=== PATIENT | female | born 1960 | race Caucasian/White ===

== ENCOUNTER 2025-05-06 23:05 | Observation (INO) | payer MEDICARE, OTHER, SELFPAY ==
[2025-05-06 17:13] VITALS: BP 139/94
[2025-05-06 17:57] LABS: Hematocrit 33.5 % (37.0-47.0); Hemoglobin 11.7 g/dL (12.0-16.0); Mean Corp Hgb Conc. 34.9 g/dL (33.0-37.0); Mean Corpuscular Volume 87.2 fL (81.0-99.0); Nucleated Red Blood Cells % 0 %; Platelet Count 237 10^3/uL (130-400); Red Cell Dist. Width 12.4 % (11.5-14.5)
[2025-05-06 18:08] LABS: INR 0.97; PT 13.2 Sec (11.4-14.6)
[2025-05-06 18:09] LABS: APTT 29.0 Sec (23.4-35.0)
[2025-05-06 18:22] LABS: ALT (SGPT) 18 U/L (0-35); AST (SGOT) 29 U/L (14-36); Albumin 4.1 g/dl (3.5-5.0); Alkaline Phosphatase 102 U/L (38-126); Blood Urea Nitrogen 41 mg/dl (7-17); Calcium 9.5 mg/dl (8.4-10.2); Carbon Dioxide 28 mmol/L (22-30); Chloride 104 mmol/L (98-107); Glucose 102 mg/dl (70-99); Lithium < 0.2 mmol/L (0.6-1.2); Potassium 3.3 mmol/L (3.5-5.1); Sodium 137 mmol/L (135-145); Total Protein 7.0 g/dl (6.3-8.2); eGFR > 60.00
[2025-05-06 20:25] VITALS: BMI 39.4
[2025-05-06 20:26] VITALS: BP 162/89
[2025-05-06] MEDS: NSS 1000 IV (20:58)
[2025-05-06 21:01] VITALS: BP 144/58
[2025-05-06] MEDS: KCL 260 MEQ IV (21:33)
[2025-05-06 21:41] VITALS: BP 133/59
[2025-05-06 22:00] VITALS: BP 132/60
--- NOTE | 2025-05-06 22:07 | ED.CVA ---
History of Present Illness
General
Chief Complaint: CVA/TIA Symptoms
Source: patient, records and family
Exam Limitations: other (Expressive aphasia)
Time Seen by Provider: 05/06/25 20:06
Nursing documentation reviewed up to this point in time: agreed with
Onset of Stroke Symptoms
Onset of symptoms known: No
Time pt last seen normal is known: No
History of Present Illness
History of Present Illness:
65-year-old female with a past medical history of hypertension and hyperlipidemia, prior stroke with expressive aphasia and right leg weakness chronically, hypothyroidism, bipolar disorder, chronic anemia who presents to the emergency department
with her brother and her sister; she presents from home where she lives independently for evaluation of aphasia and confusion/flights of ideas. The patient is a very limited/difficult historian because she has marked expressive aphasia today and
what ideas are intelligible seems to be jumping around between topics quite frequently and she is quite tangential. Much of the history is obtained from her sister and brother who are at bedside. They report that patient chronically has mild
aphasia which they described as 'a slight slur.' She has chronic weakness in the right leg. She has had issues with bipolar disorder specifically constance in the past requiring hospitalization at [facility] as well as at [facility]. She
previously had been stabilized on Abilify and lithium. It sounds like she has been noncompliant/intermittently compliant with these medications and has had general decline in her psychiatric status. They describe her as 'unable to have a straight
thought.' It sounds like today patient went over to her sister's house and she was not only noted to be tangential and not thinking straight but was also noted to have marked expressive aphasia which is a significant increase from her baseline.
She was brought to the emergency room for evaluation. As best I can understand from the patient it seems that the symptoms may have been developing over the past 2 to 3 days. She does not complain of headache or vision loss, chest pain or
abdominal pain. No reported falls or traumas.
Past History
Past History
ED Past Medical History: CVA and HTN
ED Past Surgical History: None
Social History
Tobacco: Non-smoker
Alcohol: None
Review of Systems
Review of Systems
Unable to obtain full review of systems at this time due to: other (Expressive aphasia)
All Other Systems: Not applicable
Phy Exam
Physical Exam
Physical Exam:
General: Awake, alert
Head: Normocephalic, atraumatic
Eyes: Conjunctiva normal, EOMI, pupils equal round reactive to light bilaterally
Throat: Airway intact, handling secretions
Neck: Trachea midline, supple without meningismus
Lungs: Clear to auscultation bilaterally, no wheezing, rales, rhonchi
Heart: Regular rate and rhythm, no murmurs, gallops, or rubs
Abd: Soft, non distended, nontender
Neuro: Right facial droop noted, marked expressive aphasia, slight weakness right upper extremity compared to left, marked right lower extremity weakness compared to left
Extremities: Warm, well-perfused
Psych: Flight of ideas, no suicidal thoughts expressed, does not appear to be responding to internal stimuli
Scores
Thrombolytic Contraindication
Inclusion and Exclusion criteria reviewed: Yes
Reasons for NON-Tx with Thrombolytics ABSOLUTE Exclusions: Greater than 4.5 hrs from onset of sxs
Heart Failure Risk
Heart Failure Risk Score: Not Applicable
Heart Score for Chest Pain Patients
STEMI patient?: Not applicable
Withdrawal Assessment of Alcohol
Withdrawal Assessment Completed?: Not applicable
Course
Orders/Labs/Results
Orders:
Orders
05/06/25 17:19
CT Head W/o Iv Contrast Urgent
Comment:
Reason For Exam: speech difficulties
05/06/25 17:50
Complete Blood Count/With Diff Urgent
Comprehensive Metabolic Panel Urgent
Free T4 Urgent
Robinson Urgent
PTT Urgent
Prothrombin Time Urgent
TSH Reflex To Free T4 Urgent
05/06/25 19:01
Urinalysis Reflex To Culture Urgent
Date Specimen was Collected: 05/06/25
Time Specimen was Collected: 19:01
05/06/25 20:28
0.9% Sodium Chloride 1000 ml [Nss] 1,000 ml IV BOLUS
Potassium Chloride [KCl] 20 meq 0.9% Sodium Chloride 250 ml [Nss] 250 ml IV NOW
05/06/25 20:58
Potassium Chloride [KCl] 20 meq 0.9% Sodium Chloride 250 ml [Nss] 250 ml IV NOW
05/06/25 22:19
Electrocardiogram (*1) Urgent
Reason for Study: TIA/Stroke
EKG- Treatment ONCE
05/06/25 22:20
Aspirin 325 mg PO NOW STA
Clopidogrel Bisulfate [Plavix] 75 mg PO NOW STA
Abnormal Lab Results
05/06/25
17:50
RBC 3.84 L 10^6/uL
(4.20-5.40)
Hgb 11.7 L g/dL
(12.0-16.0)
Hct 33.5 L %
(37.0-47.0)
Absolute Monos (auto) 0.8 H 10^3/uL
(0.1-0.6)
Monocytes % 10.2 H %
(1.7-9.3)
Potassium 3.3 L mmol/L
(3.5-5.1)
BUN 41 H mg/dl
(7-17)
Glucose 102 H mg/dl
(70-99)
TSH (Reflex) < 0.02 L uIU/ml
(0.47-4.68)
[place] < 0.2 L mmol/L
(0.6-1.2)
05/06/25 17:50
05/06/25 17:50
Vital Signs
Initial and Last Documented VS:
Initial Vital Signs
Temp Pulse Resp BP Pulse Ox
36.6 C 93 18 139/94 98
05/06/25 17:13 05/06/25 17:13 05/06/25 17:13 05/06/25 17:13 05/06/25 17:13
Last Documented Vital Signs
Temp Pulse Resp BP Pulse Ox
36.6 C 79 20 132/60 98
05/06/25 17:13 05/06/25 22:00 05/06/25 22:00 05/06/25 22:00 05/06/25 22:09
MDM/Problems Addressed
Differential Diagnosis Includes:
CVA, recrudescence, brain mass, brain bleed, constance/primary psychiatric illness
MDM/Problems Addressed:
65-year-old female with history as noted presents for evaluation of expressive aphasia and flights of ideas in the setting of noncompliance/intermittent compliance with psychiatric medications. It sounds like her aphasia started within the past 2
or 3 days. Would not be a candidate for tenecteplase in case of stroke. She was sent for labs including CBC and a CMP which showed some mild hypokalemia, elevated BUN suggesting some dehydration. Her lithium level was undetectable suggesting
noncompliance. CT head showed no acute pathology. Certainly this could be recrudescence of her old stroke versus a primary psychiatric issue but given the degree of aphasia on display today I do think she should be admitted for further evaluation
to rule out acute stroke. I do think psychiatric evaluation would be warranted during hospitalization. Case discussed with hospitalist for admission.
Chronic conditions affecting care:
CVA
*Radiology
Radiology exam reviewed: radiology read reviewed
*Pulse Oximetry
SaO2: 98
Oxygen Mode of Delivery: Room air
Patient hypoxic: no (98%)
*Critical Care Note
Total Time (30-74mins, 75-104mins- exclusive of procedures): Not Applicable
Patient Management
Discussion with other providers: Hospitalist (Discussed with hospitalist)
Escalation/DeEscalation of care consider admission/obs:
Admission indicated
ED Attending Note
-
Portions of this chart may have been created with voice recognition software.� Occasional wrong word or��sound alike� substitutions may have occurred due to the inherent limitations of voice recognition software.
Discharge Plan
Departure
Patient Disposition: Admit
Date of Disposition: 05/06/25
Time of Disposition: 22:20
Admit to doctor: Tristen
Presentation/result/management discussed w/ accepting MD/DO: Hospitalist
Discharge Problem:
Expressive aphasia
Prescriptions:
No Action
atorvastatin 80 mg Tablet
80 mg PO HS
levothyroxine 100 mcg Capsule
100 mcg PO DAILY
aspirin 81 mg Tablet,Chewable
81 mg PO DAILY
ferrous sulfate 325 mg (65 mg iron) tablet
325 mg PO DAILY Qty: 30 0RF
Referrals:
Kimberly Gillespie DO [Family Provider, Family Practice]
Interventions
Interventions:
*Risk Screen - Suicide Last Done: 05/06/25 17:13
*General Assessment Last Done: 05/06/25 17:13
*Neglect/Abuse Screening Last Done: 05/06/25 20:27
*ED- Fall Risk Assessment Last Done: 05/06/25 20:27
*ED COVID-19 Vaccine History Last Done: 05/06/25 20:27
ED- Pulmonary Assessment Last Done: 05/06/25 20:27
ED- Neurological Assessment Last Done: 05/06/25 20:27
ED- Cardiac Assessment Last Done: 05/06/25 20:27
ED Swallowing Screen Last Done: 05/06/25 20:34
Discharge Date and Time
Print Language: SAO TOMEAN
--- NOTE | 2025-05-06 22:27 | HPS.HSE ---
Family Physician
-
Family Physician: Kimberly Gillespie
Chief Complaint
-
worsening speech
History of Present Illness
HPI
65F HX Bipolar disorder, partial adherence to psych Meds, prior HX stroke with residual dysarthria and Rt side hemiparesis Alcon > UEx seen at ER :
- Worsening expressive aphasia
- Family reports marked departure form very mild slurring
- NEG initial HCT
Medical History
Past Medical History
Past Medical History: Reports CVA (06/16/22 HCT Probable subacute to chronic infarcts in the left mid-parietal lobe and left basal ganglia.), HTN, Hypercholesterolemia, Hypothyroidism, Psychiatric ( Bipolar disorder) and Other
Past Surgical History: Reports None
Social History
Unable to obtain full social history at this time due to: Other (partial aphasia)
Tobacco: Non-smoker
Alcohol: None
Drug: None
Personal: Single
Living: Alone
Employment: Not Employed
Family History
Family History: Not pertinent
Allergies / Home Medications
Allergies reflects when Allergies were last updated in [employer].
Home Medications with original date entered in [employer]
Allergy/Medication List:
Allergies
Allergy/AdvReac Type Severity Reaction Status Date / Time
adhesive Allergy blisters Verified 07/12/23 21:29
latex [Latex] Allergy BLISTER Verified 07/12/23 21:29
warfarin Allergy low BP Verified 07/12/23 21:29
Home Medications
aspirin 81 mg chewable tablet 81 mg PO DAILY 07/12/23
atorvastatin 80 mg tablet 80 mg PO HS 07/12/23
levothyroxine 100 mcg capsule 100 mcg PO DAILY 07/12/23
lisinopril 40 mg tablet 40 mg PO DAILY 07/12/23
nifedipine 90 mg tablet,extended release 90 mg PO DAILY 07/12/23
Review of Systems
-
Constitutional: Reports No Symptoms
EENT: Reports No Symptoms
Respiratory: Reports No Symptoms
Cardiac: Reports No Symptoms
Abdomen/GI: Reports No Symptoms
: Reports No Symptoms
Musculoskeletal: Reports No Symptoms
Skin: Reports No Symptoms
Neurological: Reports See HPI and Other (Worsening expressive aphasia)
Endocrine: Reports No Symptoms
Hematologic/Lymphatic: Reports No Symptoms
Psych: Reports No Symptoms
Physical Exam
Vital Signs
Vital Signs
Temp Pulse Resp BP Pulse Ox
97.8 F 79 20 132/60 98
05/06/25 17:13 05/06/25 22:00 05/06/25 22:00 05/06/25 22:00 05/06/25 22:09
Physical Exam
General: Well Developed, Well Nourished, No Apparent Distress and Morbidly Obese
HEENT: NormoCephalic, Nose Appears Normal and Ears Appear Normal; No Moist mucous membranes
Respiratory: Clear
Cardiac: S1/S2 and Regular Rhythm
GI: Soft, Non Tender and Non Distended
Musculoskeletal: No Clubbing, No Cyanosis and No Edema
Skin: Warm and Dry; No Rash or Jaundice
Neuro: Awake and Alert
Psych: Calm
Laboratory Results
-
05/06/25 17:50
05/06/25 17:50
Laboratory Results
PT 13.2 Sec (11.4-14.6) 05/06/25 17:50
INR 0.97 05/06/25 17:50
APTT 29.0 Sec (23.4-35.0) 05/06/25 17:50
Total Bilirubin 0.7 mg/dl (0.2-1.3) 05/06/25 17:50
AST 29 U/L (14-36) 05/06/25 17:50
ALT 18 U/L (0-35) 05/06/25 17:50
Alkaline Phosphatase 102 U/L (38-126) 05/06/25 17:50
Data Reviewed
-
CT Scan: Report Reviewed by me
Lab Data: Labs Reviewed by me
Old Records: Reviewed
Impression/Plan
-
Vital Signs
Temp Pulse Resp BP Pulse Ox
97.8 F 79 20 132/60 98
05/06/25 17:13 05/06/25 22:00 05/06/25 22:00 05/06/25 22:00 05/06/25 22:09
Abnormal Lab
05/06/25
17:50
RBC 3.84 L
Hgb 11.7 L
Hct 33.5 L
Absolute Monos (auto) 0.8 H
Monocytes % 10.2 H
Potassium 3.3 L
BUN 41 H
Glucose 102 H
TSH (Reflex) < 0.02 L
[place] < 0.2 L
06/16/22 HCT
Probable subacute to chronic infarcts in the left mid-parietal lobe and left basal ganglia.
Last hospitalist admission: 07/12/23 -07/14/23
DC DXs:
-Vasovagal syncope
- Acute kidney injury
- Hypotension
ASSESSMENT & PLAN
Pending Rx reconciliation
Worsening expressive aphasia with word finding difficulty DDX: recrudescence Lt CVA vs active Psych element
HX residual baseline dysarthria from prior stroke also residual Rt side hemiparesis Alcon> UEx
06/15/22 HX stoke by POS HCT evidence of subacute to chronic infarcts in the L mid-parietal lobe and L basal ganglia.
- family reports marked departure form very mild slurring
- NEG initial HCT
- c/w CLINICAL TRIAL COORDINATOR ASA and Hi intensity Atorvastatin
- Brain MRI in AM - if abnormal consult Neuro
Flights of ideas
HX bipolar disorder
Non adherence to medications ( stopped [place] since July 2023 and stopped Abilify since last 2023 )
Lives with twin brother
- HX 302'd psych inpatient admission to [facility] from February to Jun 2023
- Primary Psychiatric Dr Machado at [facility] - Obtain records
- Psych Consult evaluation
Hypothyroid
- on LT4
- check TSH
HX syncope
DVT Px: SCD
Full code
OBS TLM
[2025-05-06] MEDS: ASPIRIN 325 MG PO (22:59)
[2025-05-06 23:00] VITALS: BP 137/67
[2025-05-06] MEDS: PLAVIX 75 MG PO (23:00)
[2025-05-07] VITALS (20 sets, daily range): BP systolic 121–172; BP diastolic 57–119; PULSE 75; O2SAT 100; BMI 38.4
[2025-05-07 04:12] LABS: Urine Character Clear (Clear)
[2025-05-07 04:38] LABS: HDL Cholesterol 34 mg/dl; LDL Cholesterol, Calculated 26 mg/dl; Very Low Density Lipoprotein 46 mg/dl (0-30)
[2025-05-07] MEDS: SYNTHROID 100 MCG PO (07:30)
[2025-05-07] MEDS: LOW STRENGTH ASPIRIN 81 MG PO (08:30)
[2025-05-07] MEDS: PLAVIX 75 MG PO (08:30)
[2025-05-07 10:05] LABS: Depakane 20.7 ug/ml (50.0-120.0)
--- NOTE | 2025-05-07 11:54 | CM ---
Met with patient and her brother, Mark Castle # [phone] at bedside in ED
Pharmacy verified: [facility] [address] [facility]
HERNANDEZ form explained; signed @ 1000
Brother reported that patient lives alone; multilevel home; small step to enter; powder room 1st floor; 14 steps(railing present) to 2nd floor bath has tub w/shower
PLOF: brother reported has been independent with her personal care; ambulated w/ cane. Patient's sister lives 10 minutes away; shared meal program ?
Transport to be determined
PT/OT MRI pending
Discharge plan to be determined; case management will monitor and support needs/services once identified
--- NOTE | 2025-05-07 12:19 | W.PN.HOSP.TC ---
Today's Communication/Plan
-
Monitor vital signs see plan
MRI pending
Neurology and psychiatry to see
Awaiting final med rec
Continue with current dose of Synthroid
Assessment / Plan
Assessment / Plan
General: Well Developed, Well Nourished, No Apparent Distress and Morbidly Obese
HEENT: NormoCephalic, Nose Appears Normal and Ears Appear Normal
Respiratory: Clear
Cardiac: S1/S2 and Regular Rhythm
GI: Soft, Non Tender and Non Distended
Musculoskeletal: No Edema
Neuro: Awake and Alert
Psych: Calm
Worsening expressive aphasia with word finding difficulty
rule out CVA
HX residual baseline dysarthria from prior stroke also residual Rt side hemiparesis Alcon> UEx
06/15/22 HX stoke by POS HCT evidence of subacute to chronic infarcts in the L mid-parietal lobe and L basal ganglia.
CT on admission suggestive of old infarct, MRI pending
Continue with aspirin, Plavix added, atorvastatin
MRI pending
Neurology consulted
PT
Flights of ideas
HX bipolar disorder
Non adherence to medications ( stopped [place] since July 2023 and stopped Abilify since last 2023 )
Lives with twin brother
- HX 302'd psych inpatient admission to [place] from February to Jun 2023
- Primary Psychiatric Dr Machado at [place] - Obtain records
- Psych Consult evaluation
Not sure what medication she is on, asked pharmacy for med rec.Depakote is currently listed however brother at bedside does not think she takes that
Hypothyroid
- on LT4
Not sure if she is taking, TSH low with elevated free T4. If confirmed that she is taking them we will increase levothyroxine dose
Hypertension
Restart nifedipine
Hypokalemia
replete
HX syncope
DVT Px: SCD
Full code
Anticipated Discharge: 24 - 48 hours
Subjective/Interval History
-
Date of Service: May 07, 2025
denies pain
Objective Data
-
Vital Signs:
Vital Signs
Temp Pulse Resp BP Pulse Ox
97.9 F 74 23 158/86 100
05/07/25 08:33 05/07/25 10:45 05/07/25 10:45 05/07/25 10:00 05/07/25 10:45
[2025-05-07] MEDS: KCL 20 MEQ PO (13:26)
[2025-05-07] MEDS: PROCARDIA XL (EXTENDED RELEASE) 90 MG PO (13:27)
--- NOTE | 2025-05-07 14:10 | PTOTSP ---
Speech Therapy Assessment
Oral-pharyngeal swallow deemed within functional limits with no overt signs of aspiration.
Recommend:
1. Regular solids and thin liquids.
2. Meds as tolerated.
3. ST to follow and complete full language assessment. Obvious expressive and receptive aphasia during this assessment. Follow up ST in next level of care.
--- NOTE | 2025-05-07 14:16 | PTCARENOTE ---
1405 PT received from ED via stretcher AAOX3. Pt oriented to staff, and environment. Pt ambulated from stretcher to bed with her cane. Gait steady.
--- NOTE | 2025-05-07 17:35 | CON.MD ---
Consultation - Medical
-
65 y/o sngle woman with history of CVA, hypothyroidism, elevated cholesterol admitted 05/06/25. She has a long history of psychiatric illness dating from teens with history of psychiatric hospitalizations and ECT at [facility] (
[facility]). Her therapist recently and is awaiting being assigned a new therapist. Does not recall name of her psychiatrist. She also could not produce the name of her medications. Chart reviewed -- she denies she is on lithium as it
produced adverse effects. She does report having had racing thoughts, but timeframe difficult to discern. She now presents with worsening aphasia, specifically mild slurring but rather severe word-finding problems. She has awareness of this
deficit. Reports that she had a stroke on March 27, 2022 and made improvements with speech therapy. Walks with a cane.
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 Lives in a 3-bedroom home, either with or near a sibling.
States her mother and uncles had alcohol problems. Has brother and sister. Brother had provided some information to hospital on this admission, although may not be accurate. She has been prescribed Depakote here as was found in record. No lithium
detected in blood which likely reflects not taking it and says she was not prescribed this recently.
Mental Status: Obese woman, appearing older than chronological age, seated on bed with dinner tray. No tics, tremors or involuntary movements seen. Cane by her bed. Is alert and is oriented to place and time and situation. Mood seems euthymic.
Not manic -- somewhat flat. Denies hallucinations and does not appear to be hallucinating or delusional. Her aphasia severely interferes with giving history. Has insight into her mental illness and medical problems.
Findings from MRI:
1. No MRI evidence for acute infarct or intracranial hemorrhage.
2. Small chronic periventricular white matter infarcts in the posterior left frontal lobe and small chronic infarcts in the posterior limb of the left internal capsule.
3. 9 mm chronic lacunar infarct in the left putamen.
4. 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
5. 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
6. Moderate white matter leukoaraiosis in the right frontal and parietal lobes.
7. Mild to moderate diffuse cerebral and cerebellar volume loss.
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
Diagnosis:
Bipolar Disorder, unspecified
Medication compliance issues
Expressive Aphasia,
Plan: TSH is low at 0.02 and T4 elevated, levothyroixine needs to be reduced, not increased -- will leave to hospitalists.
Will keep Depakote as ordered. Check level in 3 days.
Psychiatry will follow.
--- NOTE | 2025-05-07 18:57 | CON.NEURO ---
Neuro Assessment/Plan
Assessment
MRI brain imgs rev'd, chronic stroke L IC, L midbrain, white matter disease
I spoke to her sister, who checked in on her three weeks ago when she stopped posting on Facebook as usual, and the patient was angry and shut her out. She saw patient with these problems on Thursday, and it seems to be worsening. Says Was the same
presentation as June 2023, except that this time she has some insight into her deficits, and at that time she didn�t. She thinks it�s basically the same thing again and got better with lithium. ?We discussed repeating MRI with contrast, and an
Lp, which she is hesitant for.
would defer further testing unless she fails psychiatric treatment
Consultation
Order
Date of Consultation: 05/07/25
Requesting Provider:
Reason for Consult:
Subjective/Objective
Subjective Data
Date of Service: May 07, 2025
Objective Data
Vital Signs
Temp Pulse Resp BP Pulse Ox
36.4 C 93 21 151/85 99
05/07/25 16:15 05/07/25 16:15 05/07/25 16:15 05/07/25 16:15 05/07/25 16:15
Lab Results
05/06/25 17:50
05/06/25 17:50
PT 13.2 Sec (11.4-14.6) 05/06/25 17:50
INR 0.97 05/06/25 17:50
APTT 29.0 Sec (23.4-35.0) 05/06/25 17:50
Sodium 137 mmol/L (135-145) 05/06/25 17:50
Potassium 3.3 mmol/L (3.5-5.1) L 05/06/25 17:50
BUN 41 mg/dl (7-17) H 05/06/25 17:50
Glucose 102 mg/dl (70-99) H 05/06/25 17:50
Calcium 9.5 mg/dl (8.4-10.2) 05/06/25 17:50
LDL Cholesterol, Calc 26 mg/dl 05/07/25 03:59
Patient Allergies
adhesive Allergy (Verified 05/06/25 17:15)
blisters
latex (Latex) Allergy (Verified 05/06/25 17:15)
BLISTER
warfarin Allergy (Verified 05/06/25 17:15)
low BP
Medications
-
Active Medications
Generic Name Dose Route Start Last Admin
Trade Name Freq PRN Reason Stop Dose Admin
Acetaminophen 650 mg 05/07/25 01:53
Acetaminophen 650 Mg Rectal Suppository RECTAL 06/04/25 01:52
Q4HPRN PRN
RAI, mild pain, or temp >100.4F
Acetaminophen 650 mg 05/07/25 01:53
Acetaminophen 325 Mg Tablet PO 06/04/25 01:52
Q4HPRN PRN
RAI, mild pain, or temp >100.4F
Aspirin 81 mg 05/07/25 08:00 05/07/25 08:30
Aspirin 81 Mg Chewable Tablet PO 06/04/25 07:59 81 mg
DAILY AUGUSTIN Administration
Atorvastatin Calcium 80 mg 05/07/25 22:00
Atorvastatin (Lipitor) 80 Mg Tablet PO 06/04/25 21:59
HS AUGUSTIN
Clopidogrel Bisulfate 75 mg 05/07/25 08:00 05/07/25 08:30
Clopidogrel 75 Mg Tablet PO 06/04/25 07:59 75 mg
DAILY AUGUSTIN Administration
Divalproex Sodium 250 mg 05/08/25 08:00
Divalproex 250 Mg Extended Release (24 Hr) Tablet PO 06/05/25 07:59
DAILY AUGUSTIN
Divalproex Sodium 500 mg 05/07/25 20:00
Divalproex 500 Mg Extended Release (24 Hr) Tablet PO 06/04/25 19:59
BID AUGUSTIN
Levothyroxine Sodium 150 mcg 05/08/25 06:00
Levothyroxine 150 Mcg Tablet PO 06/05/25 05:59
DAILY @ 0600 AUGUSTIN
Nifedipine 90 mg 05/07/25 13:00 05/07/25 13:27
Nifedipine 30 Mg Extended Release Tablet PO 06/04/25 12:59 90 mg
DAILY AUGUSTIN Administration
Sodium Chloride 0 flush 05/07/25 02:00
Sodium Chloride 0.9% (Flush) Syringe IV 06/04/25 01:59
PER PROTOCOL AUGUSTIN
Home Medications
�Medication �Instructions �Recorded
aspirin 81 mg chewable tablet 81 mg PO DAILY Blood Clot 07/12/23
Prevention/Tx
atorvastatin 80 mg tablet 80 mg PO HS High Cholesterol 07/12/23
cholecalciferol (vitamin D3) 50 50 mcg PO BID 05/06/25
mcg (2,000 unit) tablet (Vitamin
D3)
divalproex 250 mg tablet,extended 250 mg PO DAILY 05/06/25
release 24 hr (Depakote ER)
divalproex 500 mg tablet,extended 500 mg PO BID 05/06/25
release 24 hr (Depakote ER)
levothyroxine 150 mcg tablet 150 mcg PO DAILY 05/06/25
melatonin 10 mg tablet 10 mg PO HSPRN PRN insomnia 05/06/25
nifedipine 90 mg tablet,extended 90 mg PO DAILY 05/06/25
release 24 hr
[2025-05-07] MEDS: DEPAKOTE ER (24 HR RELEASE) 500 MG PO (20:24)
[2025-05-07] MEDS: LIPITOR 80 MG PO (21:03)
[2025-05-07] MEDS: TYLENOL 650 MG PO (21:06)
[2025-05-08] VITALS (8 sets, daily range): BP systolic 132–185; BP diastolic 61–114; PULSE 93–107; O2SAT 98
[2025-05-08] MEDS: SYNTHROID 150 MCG PO (05:23)
[2025-05-08 06:37] LABS: Hematocrit 30.8 % (37.0-47.0); Hemoglobin 10.7 g/dL (12.0-16.0); Mean Corp Hgb Conc. 34.7 g/dL (33.0-37.0); Mean Corpuscular Volume 88.0 fL (81.0-99.0); Nucleated Red Blood Cells % 0 %; Platelet Count 226 10^3/uL (130-400); Red Cell Dist. Width 12.6 % (11.5-14.5)
[2025-05-08 07:02] LABS: Blood Urea Nitrogen 18 mg/dl (7-17); Calcium 9.1 mg/dl (8.4-10.2); Carbon Dioxide 25 mmol/L (22-30); Chloride 109 mmol/L (98-107); Estimated Creatinine Clearance 102 ml/min; Glucose 98 mg/dl (70-99); Potassium 4.5 mmol/L (3.5-5.1); Sodium 138 mmol/L (135-145); eGFR > 60.00
--- NOTE | 2025-05-08 08:32 | W.PN.HOSP.TC ---
Addendum entered and electronically signed by Lauren Frey MD 05/08/25 12:26:
per sister, patient remains with expressive aphasia, mildly improved but similar symptoms as to why she was brought in. With negative MRI, no longer concerned about TIA or CVA therefore will stop Plavix
Original Note:
Today's Communication/Plan
-
follow up with Psychiatry
follow up with family, will likely stop Plavix
Assessment / Plan
Assessment / Plan
General: Well Developed, Well Nourished, No Apparent Distress and Morbidly Obese
HEENT: NormoCephalic, Nose Appears Normal and Ears Appear Normal
Respiratory: Clear
Cardiac: S1/S2 and Regular Rhythm
GI: Soft, Non Tender and Non Distended
Musculoskeletal: No Edema
Neuro: Awake and Alert
Psych: Calm
HEAD CT 05/06/25
IMPRESSION:
No acute intracranial abnormalities.
MRI
IMPRESSION:
1. No MRI evidence for acute infarct or intracranial hemorrhage.
2. Small chronic periventricular white matter infarcts in the posterior left frontal lobe and small chronic infarcts in the posterior limb of the left internal capsule.
3. 9 mm chronic lacunar infarct in the left putamen.
4. 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
5. 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
6. Moderate white matter leukoaraiosis in the right frontal and parietal lobes.
7. Mild to moderate diffuse cerebral and cerebellar volume loss.
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
Worsening expressive aphasia with word finding difficulty
HX residual baseline dysarthria from prior stroke also residual Rt side hemiparesis Alcon> UEx
06/15/22 HX stoke by POS HCT evidence of subacute to chronic infarcts in the L mid-parietal lobe and L basal ganglia.
MRI negative for acute stroke
-ua CLEAR
-Continue with aspirin, Lipitor; will touch base with family later and if there has been no improvement in aphasia since admission we can sayt his wasn't a TIA either and would stop Plavix
Neurology consulted
PT
[facility]
HX bipolar disorder
Non adherence to medications ( stopped [place] since July 2023 and stopped Abilify since last year 2023 )
Lives with twin brother
- HX 302'd psych inpatient admission to [facility] from February to Jun 2023
- Primary Psychiatric Dr Machado at [facility] - Obtain records
- Psych Consult evaluation
Not sure what medication she is on, asked pharmacy for med rec.Depakote is currently listed however brother at bedside does not think she takes that
-per Psychiatry, continue Depakote
Hypothyroidism
-low TSH on admission
-lower synthroid dose to 137.5mcg daily
Hypertension
Restart nifedipine
Hypokalemia
replete
HX syncope
DVT Px: SCD
Full code
Anticipated Discharge: 24 - 48 hours
Subjective/Interval History
-
Date of Service: May 08, 2025
patient stating she's frustrating, tangential this morning and teary eyed
Objective Data
-
Labs:
Laboratory Results
05/08/25
06:20
WBC 4.8
Hgb 10.7 L
Hct 30.8 L
Plt Count 226
Sodium 138
Potassium 4.5 D
Chloride 109 H
Carbon Dioxide 25
BUN 18 H
Creatinine 0.5 L
Glucose 98
Calcium 9.1
Vital Signs:
Vital Signs
Temp Pulse Resp BP Pulse Ox
97.3 F 73 20 185/114 97
05/08/25 07:00 05/08/25 07:00 05/08/25 07:00 05/08/25 07:00 05/08/25 07:00
Review of Systems
-
History Source: Patient
All other systems: Reviewed and negative
Data Reviewed
-
Diagnostic Radiology: Report Reviewed by me
Labs: Labs Reviewed by me
[2025-05-08] MEDS: LOW STRENGTH ASPIRIN 81 MG PO (08:47)
[2025-05-08] MEDS: DEPAKOTE ER (24 HR RELEASE) 250 MG PO (08:47)
[2025-05-08] MEDS: DEPAKOTE ER (24 HR RELEASE) 500 MG PO ×2 (08:47→20:35)
[2025-05-08] MEDS: PLAVIX 75 MG PO (08:47)
[2025-05-08] MEDS: PROCARDIA XL (EXTENDED RELEASE) 90 MG PO (08:51)
--- NOTE | 2025-05-08 10:01 | PTOTSP ---
Speech Therapy Evaluation:
Given pt presentation with Aphasia, the Quick Aphasia Battery (QAB) Form 1 was administered. Scores were as follows:
Word Comprehension: 10.00
Sentence Comprehension: 1.67
Word Findin.50
Grammatical Construction: 8.13
Speech Motor Programmin.00
Repetition: 6.25
Readin.00
QAB Overall: 7.20 - moderate
Impression: Pt earned a score of 7.20 on the QAB, indicative of moderate aphasia. Pt's deficits were in receptive and expressive language areas with reductions in sentence comprehension, word finding, grammatical construction, and repetition. In
conversation, mild word finding deficits noted, however speech remained largely fluent, non-sensical, and empty. Pt demonstrated paragrammatism with garbled syntax. She was easily distracted and tangential, requiring frequent redirections for task
participation. Pt noted to be emotionally labile, frequently crying during evaluation followed by periods of calmness. Pt would benefit from ongoing tx at acute care level and following d/c to improve expressive and receptive language skills.
[2025-05-08] MEDS: LIPITOR 80 MG PO (22:40)
[2025-05-08] MEDS: MELATONIN 3 MG PO (22:40)
--- NOTE | 2025-05-09 02:27 | DOWNTIME ---
There was a [employer] Downtime on 05/09/2025 from 0100 to 05/09/2025 at 0220. Downtime documentation of patient's care, including medication administrations, has been reconciled in the electronic record per guidelines. Refer to the
patient's paper chart under the miscellaneous tab to see printed paper medication records and downtime forms.
[2025-05-09 03:00] VITALS: BP 129/71
[2025-05-09] MEDS: TYLENOL 650 MG PO ×3 (04:07→22:23)
[2025-05-09] MEDS: SYNTHROID 137 MCG PO (05:57)
[2025-05-09 07:15] VITALS: BP 133/79
[2025-05-09] MEDS: DEPAKOTE ER (24 HR RELEASE) 500 MG PO (08:01)
[2025-05-09] MEDS: PROCARDIA XL (EXTENDED RELEASE) 90 MG PO (08:01)
[2025-05-09] MEDS: LOW STRENGTH ASPIRIN 81 MG PO (08:01)
[2025-05-09] MEDS: DEPAKOTE ER (24 HR RELEASE) 250 MG PO (08:01)
--- NOTE | 2025-05-09 09:49 | W.PN.HOSP.TC ---
Addendum entered and electronically signed by Lauren Frey MD 05/09/25 18:35:
Patient is an exceptional admissions for further treatment of expressive aphasia and PT/OT
Addendum entered and electronically signed by Lauren Frey MD 05/09/25 09:59:
patient was seen by Neurology who recommended deferring further testing unless she fails psychiatric treatment. patient is more clear today with improved thought process, therefore it seems her symptoms improved with mood stabilizer, Depakote
Original Note:
Today's Communication/Plan
-
dispo planning
follow up further Psychiatry recommendations
Assessment / Plan
Assessment / Plan
HEAD CT 05/06/25
IMPRESSION:
No acute intracranial abnormalities.
MRI
IMPRESSION:
1. No MRI evidence for acute infarct or intracranial hemorrhage.
2. Small chronic periventricular white matter infarcts in the posterior left frontal lobe and small chronic infarcts in the posterior limb of the left internal capsule.
3. 9 mm chronic lacunar infarct in the left putamen.
4. 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
5. 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
6. Moderate white matter leukoaraiosis in the right frontal and parietal lobes.
7. Mild to moderate diffuse cerebral and cerebellar volume loss.
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
Worsening expressive aphasia with word finding difficulty
Hx CVA
-MRI negative for acute stroke; etiology of aphasia related to psychiatric illness in setting of med non-compliance (see below)
-ua CLEAR
-Continue with aspirin, Lipitor; Plavix stopped
[facility]
HX bipolar disorder
Non adherence to medications ( stopped [place] since July 2023 and stopped Abilify since last year 2023 )
Lives with twin brother
- HX 302'd psych inpatient admission to [facility] from February to Jun 2023
- Primary Psychiatric Dr Machado at [place] - Obtain records
- Psych Consult evaluation appreciated
-continue Depakote
-patient's speech seems more clear and calm this morning
-working on placement to SNF
Hypothyroidism
-low TSH on admission
-lower synthroid dose to 137.5mcg daily
Hypertension
Restart nifedipine
Hypokalemia
replete
HX syncope
DVT Px: SCD
Full code
Anticipated Discharge: Within 24 hours
Subjective/Interval History
-
Date of Service: May 09, 2025
speech more clear today
Objective Data
-
Vital Signs:
Vital Signs
Temp Pulse Resp BP Pulse Ox
97.8 F 77 16 133/79 100
05/09/25 07:15 05/09/25 08:01 05/09/25 07:15 05/09/25 08:01 05/09/25 09:13
I&O
05/08/25 05/09/25 05/10/25
06:59 06:59 06:59
Intake Total 1200 / 1200
Balance 1200 / 1200
Review of Systems
-
History Source: Patient
All other systems: Reviewed and negative
Physical Exam
-
General: Well Developed and No Apparent Distress
HEENT: Normocephalic, Atraumatic and Moist Mucous Membranes
Respiratory: Clear to Auscultation
Cardiac: Regular Rhythm and S1/S2; Negative Murmur, Rub or Gallop
GI: Soft, Nontender, Nondistended and Normal Bowel Sounds; Negative Organomegaly
Rectal: Deferred by Provider
Musculoskeletal: No Clubbing, No Cyanosis and No Edema
Skin: Warm; Negative Rash
Neuro: Awake, Alert and Other (speech more clear today. she is less tangential. she is upset about rehab )
Psych: Calm
Data Reviewed
-
Diagnostic Radiology: Report Reviewed by me
[2025-05-09 11:20] VITALS: PULSE 89; O2SAT 97
--- NOTE | 2025-05-09 12:23 | W.PN.UPDATE ---
Update Note
Progress Note Update
Pt seen, sitting up in chair. Pt alert, oriented, answering questions with coherent speech. Pt states she initially could only respond to yes/no questions, now is much better, able to express herself. Pt tearful off and on, states he older
brother just , and she is waiting to hear from her family about his . Pt reports a hx of recurrent major depression, had ECT in the past, took SSRI's, states she was last on Nardil. Pt reports she was placed on [place] more
recently, but had side effects. Pt has been continued on Depakote ER here. VPA level 20.7 on 05/07/25. Pt states she had gastric bypass surgery years ago. Pt is calm, cooperative, speech mildly pressured, thought somewhat circumstantial/mildly
tangential. Pt denies significant depression, apart from sadness due to losses. She does not show signs of active constance or psychosis. Reliability of her history appears to be somewhat questionable.
Imp: Hx of Bipolar d/o, hx of recurrent depression, appears fairly stable on Depakote
Rec: Will switch to Depakote DR given hx of gastric bypass
Outpatient treatment when medically stable/upon return home
Will follow
--- NOTE | 2025-05-09 12:27 | W.DCSUMMARY ---
Addendum entered and electronically signed by Xiang Portillo MD 05/14/25 12:59:
Addendum
Date of admission: 05/06/2025
Date of discharge: 05/12/2025
End
Addendum entered and electronically signed by Lauren Frey MD 05/09/25 16:27:
Depakote changed to DR dior Psychiatry, given history of gastric bypass.
Addendum entered and electronically signed by Lauren Frey MD 05/09/25 12:44:
TSH was checked on admission with value < 0.02. Therefore, patient's Levothyroxine dosing is decreased from 150mcg to 137mcg.
Original Note:
Discharge Summary
Discharge Data
Date of Admission: 05/06/25
Date of Discharge: 05/09/25
-
Pending Results: No
Hospital Course
Discharging Physician : Dr. Lauren Frey
Disposition : SNF
Primary care physician : Dr. Kimberly Gillespie
Principal Discharge diagnosis : Expressive Aphasia, Bipolar Disorder and Medication Non-compliance
Hospital Course :
Ms. Ghazal Chan is a 65 yo woman with hx bipolar disorder, medication non-compliance, CVA with residual dysarthria and right sided hemiparesis brought to the ER with worsening expressive aphasia.
Triage vitals stable. Labs without leukocytosis, normal renal function, K 3.3. Head CT without acute finding. Differential included untreated psychiatric illness versus acute CVA. She was admitted to medicine with Psychiatry and Neurology
consulted. MRI the following morning without acute stroke. Per Neurology recommendation, further testing for aphasia deferred unless fails psychiatric treatment. Patient was continued on her Depakote (at previously prescribed dosing) and she
tolerated this with improvement in symptoms.
Plan is for SNF.
Time spent on discharge was 31 minutes.
Important imaging findings :
HEAD CT 05/06/25
IMPRESSION:
No acute intracranial abnormalities.
MRI
IMPRESSION:
1. No MRI evidence for acute infarct or intracranial hemorrhage.
2. Small chronic periventricular white matter infarcts in the posterior left frontal lobe and small chronic infarcts in the posterior limb of the left internal capsule.
3. 9 mm chronic lacunar infarct in the left putamen.
4. 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
5. 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
6. Moderate white matter leukoaraiosis in the right frontal and parietal lobes.
7. Mild to moderate diffuse cerebral and cerebellar volume loss.
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
Procedure findings :
Discharge Plan
-
Patient Disposition: Care Home/SNF
Discharge Diagnosis/Procedures: expressive aphasia in setting of Bipolar Disorder and medication non-compliance
Diet: Regular
Activity: As tolerated
Driving Restrictions: Not until seen by your Dr
Bathing Restrictions: None
Other Services: PT and OT
Referrals:
Kimberly Gillespie, DO [Family Provider, Family Practice] - in less than 1 week
Prescriptions:
No Action
atorvastatin 80 mg Tablet
80 mg PO HS
aspirin 81 mg Tablet,Chewable
81 mg PO DAILY
nifedipine 90 mg Tablet Extended Release 24hr
90 mg PO DAILY
divalproex [Depakote ER] 500 mg Tablet Extended Release 24 Hr
500 mg PO BID
levothyroxine 150 mcg Tablet
150 mcg PO DAILY
divalproex [Depakote ER] 250 mg Tablet Extended Release 24 Hr
250 mg PO DAILY
Rx Instructions:
once in the morning
cholecalciferol (vitamin D3) [Vitamin D3] 50 mcg (2,000 unit) Tablet
50 mcg PO BID
melatonin 10 mg Tablet
10 mg PO HSPRN PRN (Reason: insomnia)
Discharge Date and Time
Print Language: SRI LANKAN
[2025-05-09 15:01] VITALS: BP 95/57
--- NOTE | 2025-05-09 17:14 | CM ---
Addendum entered by Maria A Melo 05/09/25 17:32:
Pended reference #: [id number]
clinicals faxed to [phone]
Original Note:
Patient seen at bedside
spoke with sister Carmella
PT rec SNF
options reviewed-[facility] accepted [facility], bed available
Spoke with [facility] liaison regarding [facility] & 30 day exceptional admission
tt hospitalist to document in progress note
[facility] NPI #: [id number]
Dr. Donal Delong NPI #: [id number]
CM to initiate [employer] auth via [employer]
PLAN: [facility], once auth approved
[2025-05-09] MEDS: DEPAKOTE (12 HR RELEASE) 500 MG PO (20:08)
[2025-05-09] MEDS: MELATONIN 3 MG PO (22:23)
[2025-05-09] MEDS: LIPITOR 80 MG PO (22:23)
[2025-05-09 23:21] VITALS: BP 123/68
[2025-05-10] MEDS: TYLENOL 650 MG PO ×2 (04:15→14:44)
[2025-05-10] MEDS: SYNTHROID 137 MCG PO (06:02)
[2025-05-10 07:45] VITALS: BP 123/69
[2025-05-10] MEDS: PROCARDIA XL (EXTENDED RELEASE) 90 MG PO (07:53)
[2025-05-10] MEDS: LOW STRENGTH ASPIRIN 81 MG PO (07:53)
[2025-05-10] MEDS: DEPAKOTE (12 HR RELEASE) 250 MG PO (07:53)
[2025-05-10] MEDS: DEPAKOTE (12 HR RELEASE) 500 MG PO ×2 (07:53→20:45)
--- NOTE | 2025-05-10 09:38 | W.PN.HOSP.TC ---
Addendum entered and electronically signed by Xiang Portillo MD 05/10/25 15:41:
Addendum
Patient was evaluated by psychiatrist. Mental status improved significantly. Expectation to be discharged home no longer than 30 days. Patient's currently an exceptional admission.
Original Note:
Today's Communication/Plan
-
dc
Assessment / Plan
Assessment / Plan
Physical Exam
-
General: Well Developed and No Apparent Distress
HEENT: Normocephalic, Atraumatic and Moist Mucous Membranes
Respiratory: Clear to Auscultation
Cardiac: Regular Rhythm and S1/S2; Negative Murmur, Rub or Gallop
GI: Soft, Nontender, Nondistended and Normal Bowel Sounds; Negative Organomegaly
Rectal: Deferred by Provider
Musculoskeletal: No Clubbing, No Cyanosis and No Edema
Skin: Warm; Negative Rash
Neuro: Awake, Alert and oriented X3, followed commands. and Other (gait is normal with walker,
Psych: Calm
HEAD CT 05/06/25
IMPRESSION:
No acute intracranial abnormalities.
MRI
IMPRESSION:
1. No MRI evidence for acute infarct or intracranial hemorrhage.
2. Small chronic periventricular white matter infarcts in the posterior left frontal lobe and small chronic infarcts in the posterior limb of the left internal capsule.
3. 9 mm chronic lacunar infarct in the left putamen.
4. 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
5. 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
6. Moderate white matter leukoaraiosis in the right frontal and parietal lobes.
7. Mild to moderate diffuse cerebral and cerebellar volume loss.
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
Worsening expressive aphasia with word finding difficulty
Hx CVA
-MRI negative for acute stroke; etiology of aphasia related to psychiatric illness in setting of med non-compliance (see below)
-ua CLEAR
-Continue with aspirin, Lipitor; Plavix stopped
[facility]
HX bipolar disorder
Non adherence to medications ( stopped [place] since July 2023 and stopped Abilify since last 2023 )
Lives with twin brother
- HX 302'd psych inpatient admission to [facility] from February to Jun 2023
- Primary Psychiatric Dr Machado at [place] - Obtain records
- Psych Consult evaluation appreciated
-continue Depakote
-patient's speech seems more clear and calm this morning
-working on placement to SNF
Hypothyroidism
-low TSH on admission
-lower synthroid dose to 137.5mcg daily
Hypertension
Restart nifedipine
Hypokalemia
replete
HX syncope
DVT Px: SCD
Full code
Total discharge time spent to see the patient, examine the patient, review lab results and data, discuss discharge plan with patient, nursing staff around 65 minutes
Anticipated Discharge: Today
Subjective/Interval History
-
Date of Service: May 10, 2025
No complaints
Objective Data
-
Vital Signs:
Vital Signs
Temp Pulse Resp BP Pulse Ox
97.4 F 71 16 123/69 99
05/10/25 07:45 05/10/25 07:53 05/10/25 07:45 05/10/25 07:53 05/10/25 07:45
I&O
05/09/25 05/10/25 05/11/25
06:59 06:59 06:59
Intake Total 1200 / 1200 480 / 480
Balance 1200 / 1200 480 / 480
--- NOTE | 2025-05-10 10:15 | CM ---
Auth for [facility] still pending
Pended reference #: [id number]
clinicals were faxed to [phone]
faxed [phone] liaarnaldo Corea the corrected [facility] & progress note for exceptional admissions
PLAN: [facility] once auth approved
Report #: [id number]
Fax #: [phone]
transport forms on chart
[2025-05-10 10:48] VITALS: BP 163/91; PULSE 83; O2SAT 99
--- NOTE | 2025-05-10 11:29 | W.PN.UPDATE ---
Update Note
Progress Note Update
patient seen chart reviewed . spoke th nursing. sister at bedside provided some information. patient said yesterday she was mourning the recent of her brother . apparently brother five yearsa go and patient said she had been 'mistaken/
the patient is improved but still has a tendency to ramble. it was very difficult to follow her conversation much of which appeared to be about necessary repairs to her home. she expects to return home but according to cm that is not the plan.
snf? she has been started on depakote switched to immediate release. dosage was inc on admit given low blood level on admit.will recheck in am. patient will need psychiatric followup on dc. will discuss with cm.
[2025-05-10 15:47] VITALS: BP 123/70
[2025-05-10] MEDS: MELATONIN 3 MG PO (22:12)
[2025-05-10] MEDS: LIPITOR 80 MG PO (22:12)
[2025-05-10 23:17] VITALS: BP 133/85
[2025-05-11] MEDS: TYLENOL 650 MG PO ×2 (03:42→09:26)
[2025-05-11] MEDS: SYNTHROID 137 MCG PO (05:53)
[2025-05-11 07:00] VITALS: BP 157/80
--- NOTE | 2025-05-11 08:28 | W.PN.HOSP.TC ---
Today's Communication/Plan
-
await discharge
Assessment / Plan
Assessment / Plan
Physical Exam
-
General: Well Developed and No Apparent Distress
HEENT: Normocephalic, Atraumatic and Moist Mucous Membranes
Respiratory: Clear to Auscultation
Cardiac: Regular Rhythm and S1/S2; Negative Murmur, Rub or Gallop
GI: Soft, Nontender, Nondistended and Normal Bowel Sounds; Negative Organomegaly
Rectal: Deferred by Provider
Musculoskeletal: No Clubbing, No Cyanosis and No Edema
Skin: Warm; Negative Rash
Neuro: Awake, Alert and oriented X3, followed commands. and Other (gait is normal with walker,
Psych: Calm
HEAD CT 05/06/25
IMPRESSION:
No acute intracranial abnormalities.
MRI
IMPRESSION:
1. No MRI evidence for acute infarct or intracranial hemorrhage.
2. Small chronic periventricular white matter infarcts in the posterior left frontal lobe and small chronic infarcts in the posterior limb of the left internal capsule.
3. 9 mm chronic lacunar infarct in the left putamen.
4. 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
5. 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
6. Moderate white matter leukoaraiosis in the right frontal and parietal lobes.
7. Mild to moderate diffuse cerebral and cerebellar volume loss.
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
Worsening expressive aphasia with word finding difficulty
Hx CVA
-MRI negative for acute stroke; but abnormal MRI brain
-ua CLEAR
-Continue with aspirin, Lipitor; Plavix stopped
Flights [facility] ideas
HX bipolar disorder
Non adherence to medications ( stopped [place] since July 2023 and stopped Abilify since last 2023 )
Lives with twin brother
- HX 302'd psych inpatient admission to [place] from February to Jun 2023 , per [facility] [place] medical records: no records.
- Primary Psychiatric Dr Machado at [place] -
- Psych Consult evaluation appreciated
-continue Depakote
-patient's speech seems more clear and calm this morning
-working on placement to SNF
Hypothyroidism
-low TSH on admission
-lower synthroid dose to 137.5mcg daily
Hypertension
Restart nifedipine
Hypokalemia
replete
HX syncope
DVT Px: SCD
Full code
Total discharge time spent to see the patient, examine the patient, review lab results and data, discuss discharge plan with patient, nursing staff around 65 minutes
Anticipated Discharge: Today
Subjective/Interval History
-
Date of Service: May 11, 2025
No complaints
Objective Data
-
Vital Signs:
Vital Signs
Temp Pulse Resp BP Pulse Ox
98.0 F 85 16 133/85 96
05/10/25 23:17 05/10/25 23:17 05/10/25 23:17 05/10/25 23:17 05/10/25 23:17
I&O
05/10/25 05/11/25 05/12/25
06:59 06:59 06:59
Intake Total 480 / 480 1680 / 1680
Balance 480 / 480 1680 / 1680
[2025-05-11] MEDS: PROCARDIA XL (EXTENDED RELEASE) 90 MG PO (09:13)
[2025-05-11] MEDS: DEPAKOTE (12 HR RELEASE) 500 MG PO ×2 (09:14→21:08)
[2025-05-11] MEDS: LOW STRENGTH ASPIRIN 81 MG PO (09:14)
[2025-05-11] MEDS: DEPAKOTE (12 HR RELEASE) 250 MG PO (09:14)
[2025-05-11 09:26] LABS: Depakane 63.3 ug/ml (50.0-120.0)
[2025-05-11 10:03] VITALS: BP 140/91; PULSE 91; O2SAT 98
--- NOTE | 2025-05-11 10:32 | CM ---
Chart reviewed. [employer] auth still pending at this time
Clinicals faxed yesterday, still under review
Updated hospitalist
Plan: [facility] once auth is received
[2025-05-11 15:00] VITALS: BP 146/85
--- NOTE | 2025-05-11 16:07 | W.PN.UPDATE ---
Update Note
Progress Note Update
patient seen chart reviewed. discussed with nursing. sister at bedside. the patient was not in a happy mood. her speech was a bit more difficult to understand today but i was able to comprehend what she was saying. essentially she was upset that
she was still here. she seems to have understood from cm that she would be discharged to snf today and she was angry that this had not taken place. she felt staff essentially was just not doing their job. explained to her that this is a matter of
needing authorization from her insurance and try as we might we cannot speed them up. reported to her that her depakote level is 63 which is in the therapeutic range. will check in w her tomorrow.
[2025-05-11] MEDS: LIPITOR 80 MG PO (21:08)
[2025-05-11] MEDS: MELATONIN 3 MG PO (21:08)
[2025-05-11 23:05] VITALS: BP 119/68
[2025-05-12] MEDS: SYNTHROID 137 MCG PO (05:29)
[2025-05-12 07:55] VITALS: BP 137/76
--- NOTE | 2025-05-12 08:13 | W.PN.HOSP.TC ---
Today's Communication/Plan
-
Complains of prolonged hospital stay, wants updates from social service
Appreciate social/ case manager specialist help
Assessment / Plan
Assessment / Plan
Physical Exam
-
General: Well Developed and No Apparent Distress
HEENT: Normocephalic, Atraumatic and Moist Mucous Membranes
Respiratory: Clear to Auscultation
Cardiac: Regular Rhythm and S1/S2; Negative Murmur, Rub or Gallop
GI: Soft, Nontender, Nondistended and Normal Bowel Sounds; Negative Organomegaly
Rectal: Deferred by Provider
Musculoskeletal: No Clubbing, No Cyanosis and No Edema
Skin: Warm; Negative Rash
Neuro: Awake, Alert and oriented X3, followed commands. and Other (gait is normal with walker,
Psych: Calm
HEAD CT 05/06/25
IMPRESSION:
No acute intracranial abnormalities.
MRI
IMPRESSION:
1. No MRI evidence for acute infarct or intracranial hemorrhage.
2. Small chronic periventricular white matter infarcts in the posterior left frontal lobe and small chronic infarcts in the posterior limb of the left internal capsule.
3. 9 mm chronic lacunar infarct in the left putamen.
4. 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
5. 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
6. Moderate white matter leukoaraiosis in the right frontal and parietal lobes.
7. Mild to moderate diffuse cerebral and cerebellar volume loss.
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
Worsening expressive aphasia with word finding difficulty
Hx CVA
-MRI negative for acute stroke; but abnormal MRI brain
-ua CLEAR
-Continue with aspirin, Lipitor; Plavix stopped
Flights of ideas
HX bipolar disorder
Non adherence to medications ( stopped [place] since July 2023 and stopped Abilify since last 2023 )
Lives with twin brother
- HX 302'd psych inpatient admission to [place] from February to Jun 2023 , per [facility] medical records: no records.
- Primary Psychiatric Dr Machado at [place] -
- Psych Consult evaluation appreciated
-continue Depakote
-patient's speech seems more clear and calm this morning
-working on placement to SNF
Hypothyroidism
-low TSH on admission
-lower synthroid dose to 137.5mcg daily
Hypertension
Restart nifedipine
Hypokalemia
replete
HX syncope
DVT Px: SCD
Full code
Total time spent to see the patient, examine the patient, review lab results and data, discuss discharge plan with patient, case manager specialist, nursing staff around 45 minutes
Anticipated Discharge: Today
Subjective/Interval History
-
Date of Service: May 12, 2025
Complains of prolonged hospital stay, wants updates from social service
Objective Data
-
Vital Signs:
Vital Signs
Temp Pulse Resp BP Pulse Ox
98.5 F 81 17 137/76 99
05/12/25 07:55 05/12/25 07:55 05/12/25 07:55 05/12/25 07:55 05/12/25 07:55
I&O
05/11/25 05/12/25 05/13/25
06:59 06:59 06:59
Intake Total 1680 / 1680 1200 / 1200
Balance 1680 / 1680 1200 / 1200
[2025-05-12] MEDS: LOW STRENGTH ASPIRIN 81 MG PO (08:47)
[2025-05-12] MEDS: DEPAKOTE (12 HR RELEASE) 250 MG PO (08:47)
[2025-05-12] MEDS: PROCARDIA XL (EXTENDED RELEASE) 90 MG PO (08:47)
[2025-05-12] MEDS: DEPAKOTE (12 HR RELEASE) 500 MG PO (08:47)
--- NOTE | 2025-05-12 08:48 | CM ---
Addendum entered by [facility] 05/12/25 13:09:
[facility]
CORRECTION - Report #: [id number] 2nd floor
Fax #: [phone]
Addendum entered by [facility] 05/12/25 11:56:
IMM n/a - OBS
Addendum entered by [facility] 05/12/25 11:40:
Patient sister Carmella Notified - she will transport patient
Addendum entered by [facility] 05/12/25 11:31:
Lauren from [facility] called CM back
Auth approved for [facility]
Approved Auth reference #[id number]
Start 05/12-05/18, NRD 05/19/25
Fax updates to [phone]
PLAN: [facility]
Report #: [phone]
Fax #: [phone]
transport forms on chart
Addendum entered by [facility] 05/12/25 09:41:
CM rec call from Lauren shelley mgr at [facility] - stated they did not receive clinicals. CM stated previously faxed clinicals & received confirmation. they were faxed to correct fax #: [phone]
CM faxed clinicals again & she stated she will expedite
Original Note:
CM checked [employer] for auth status
Auth reference #[id number] STILL PENDING medical review
CM called Mary Todd at [facility] [phone] and LM regarding this.
tt hospitalist
PLAN: [facility] once auth approved
Report #: [id number]
Fax #: [phone]
transport forms on chart
[2025-05-12] MEDS: TYLENOL 650 MG PO ×2 (09:07→14:22)
--- NOTE | 2025-05-12 11:45 | W.PN.UPDATE ---
Update Note
Progress Note Update
patient seen chart reviewed. mrs rice's articulation is much better this am. speech issues noted yesterday seem to have disappeared. she said the reason is bc 'i'm angry'. she does NOT want to be in hospital and is eager to be on her way.
spoke to cm happily she wll be leaving today to snf. would leave psych meds as they are . depakote level is therapeutic. she is at times rather rambling and tangential and can be easily irritated. she seems to feel sibs are too intrusive. i did
note that her tsh is slightly dec and her t4 slightly increased. this might be rechecked in the near future b12 folate ok.
[2025-05-12 14:27] VITALS: BP 141/82
== END 2025-05-12 15:15 ==
LOC: 3 WEST ACU 23:05
PROVIDERS: Internal Medicine; Psychiatry & Neurology Psychiatry; ADMITTING PHYSICIAN Internal Medicine; ATTENDING PHYSICIAN Internal Medicine; CONSULT PHYSICIAN Psychiatry & Neurology Clinical Neurophysiology; CONSULT PHYSICIAN Psychiatry & Neurology Psychiatry; EMERGENCY PHYSICIAN Emergency Medicine; FAMILY PHYSICIAN Family Medicine
DX: R47.01 Aphasia (principal); F31.9 Bipolar disorder, unspecified; I69.351 Hemiplegia and hemiparesis following cerebral infarction affecting right dominant side; I69.322 Dysarthria following cerebral infarction; E03.9 Hypothyroidism, unspecified; Z91.148 Patient's other noncompliance with medication regimen for other reason; I10 Essential (primary) hypertension; E87.6 Hypokalemia; Z79.899 Other long term (current) drug therapy
CPT/HCPCS: 70450; 70551; 80048; 80053; 80061; 80164; 80178; 81003; 84439; 84443; 85025; 85610; 85730; 92507; 92523; 92610; 93005; 96361; 96374; 97116; 97162; 97530; 97535; 99285; G0378

== ENCOUNTER → 2025-09-15 08:04 | Outpatient (REF) | payer OTHER, SELFPAY | LOC: RAD 08:04 | PROVIDERS: ATTENDING PHYSICIAN Family Medicine | DX: M53.3 Sacrococcygeal disorders, not elsewhere classified (principal) | CPT/HCPCS: 72220 ==